=== PATIENT | female | born 1955 | race Caucasian/White ===

== ENCOUNTER 2017-12-21 19:40 | Inpatient (IN) | payer OTHER ==
[~2017-12-21] VITALS: Ht 162.6 cm; Wt 83.2 kg
--- NOTE | ~2017-12-21 | DS ---
PATIENT:RICHA BROWN :55 MEDICAL RECORD: [id number] DISCHARGE SUMMARY ADMISSION DATE: 12/21/17 DISCHARGE DATE: 12/25/17 DATE OF ADMISSION: 12/21/2017 DATE OF DISCHARGE: 12/25/2017 ADMISSION DIAGNOSIS: Acute sigmoid diverticulitis. DISCHARGE DIAGNOSES: Acute sigmoid diverticulitis and electrolyte abnormalities. HOSPITAL COURSE: The patient was admitted to the Emergency Room with left lower quadrant pain, chills, symptomatic for several days. Does not have a primary care physician. Was admitted through [facility]. CT showed sigmoid diverticulitis. The patient was started on IV Levaquin and IV metronidazole, initially n.p.o., gradually improved. Electrolytes monitored. Had deficiencies of potassium, magnesium, and phosphorus. These were corrected. The patient is tolerating clear liquids, soft diet. Anxious to go home. Discharged on oral medication. Has been afebrile on oral medications for the past 24 hours. Will follow up in the clinic in 2 weeks. We will advance diet as tolerated. DISCHARGE MEDICATIONS: Per [facility]. TRANSINT:[id number] Voice Confirmation ID: [id number] DOCUMENT ID: [id number] TIM HERNANDEZ DO at 1224 CC: [id number] DICTATION DATE: 12/25/17 1112 EIGHT ARM OPERATOR: 12/25/17 1212 DIS IN 12/25/17 [id number] [place] [address]
--- NOTE | ~2017-12-21 | MORECARE ---
CASE MANAGEMENT DISCHARGE SUMMARY PATIENT: RICHA BROWN UNIT: [id number] ADM DATE: 12/21/17 AGE: 62 : 55 SEX: F ROOM/BED: D.2204 AUTHOR: CASE, [employer] INSULATOR PHYSICIAN: REFERRING PHYSICIAN: TIM HERNANDEZ DO DATE OF SERVICE: 12/21/17 Discharge Plan Patient Name: [facility]ICHA BROWN [facility] [facility] 1955 Planned Disposition: Home or Self Care Anticipated Discharge Date: Discharge Date: Expected LOS: Initial Reviewer: [id number] Initial Review Date: 12/22/2017 Generated: 12/22/17 3:09 pm Patient Name: RICHA BROWN Page [id number] All edits/amendments must be made on the electronic document DICTATION DATE: 12/22/171407 [employer] BPM DEVELOPER: 12/22/171407 RPT#: [id number] DC DATE: STATUS: ADM IN [facility] [address] [place] [address] END OF REPORT
--- NOTE | ~2017-12-21 | HP ---
PATIENT: RICHA BROWN MEDICAL RECORD: [id number] ACCOUNT: [id number] LOCATION:[facility] [address] : 55 ADMISSION DATE: 12/21/17 HISTORY AND PHYSICAL EXAMINATION HISTORY OF PRESENT ILLNESS: A 62-year-old female presented to the Emergency Room late last night with mild left lower quadrant abdominal pain, had prior complaint of constipation. Has no primary care physician. ALLERGIES: No known drug allergies. MEDICATIONS: Takes [id number] Nexium, Claritin, fish oil, and probiotic at home. PAST MEDICAL HISTORY: Remote history of prior diverticulitis. Very remote history of colonoscopy, does not remember results. Rare to seek medical care. REVIEW OF SYSTEMS: GENERAL: No acute change in weight or appetite. HEENT: No cephalgia, visual changes, tinnitus, epistaxis, or dysphagia. CARDIOVASCULAR: Denies chest pain. Denies palpitations. PULMONARY: Denies hemoptysis. Denies night sweats. GASTROINTESTINAL: Denies hematemesis, hematochezia, or melena. Does admit left lower quadrant abdominal pain. GENITOURINARY: Denies dysuria. MUSCULOSKELETAL: No acute changes. ENDOCRINE: Denies polyuria, polydipsia, or polyphagia. PHYSICAL EXAMINATION: VITAL SIGNS: Temperature 99.7, blood pressure is 160/99, heart rate 95, respirations 20, O2 sat 98% on room air. GENERAL: Alert, oriented, in mild distress secondary to above. HEENT: Head: Normocephalic, atraumatic. Eyes: Pupils equally round and reactive to light and accommodation. Extraocular muscles intact. Conjunctivae not injected. Ears: Canals patent. TMs are intact. Nose: Nares patent without drainage. Throat: No erythema. No exudates. NECK: Supple. No lymphadenopathy. No JVD. GASTROINTESTINAL/ABDOMEN: Left lower quadrant tenderness. No palpable mass. No rebound. No guarding. EXTREMITIES: Present times 4. NEUROLOGIC: Intact. LABORATORY DATA: CBC: White count 14.7, hemoglobin 14.1, hematocrit 42.3, platelets 231. Chemistry shows sodium of 140, potassium 3.7, chloride 103, bicarbonate 26, BUN 14, creatinine 0.8. T-bili 0.48, AST 21, ALT 35, alkaline phosphatase 65. CBC: White count 16,300, hemoglobin 15.3, hematocrit 45.4, platelets 259. Lipase 185. Urinalysis: Straw-colored, clear, normal UA. CT of the abdomen: Thickening, stranding around the sigmoid colon consistent with sigmoid diverticulitis. ASSESSMENT AND PLAN: Acute sigmoid diverticulitis. The patient is admitted. IV fluids. Empiric antibiotics. We will start clear liquid diet as tolerated. Supportive care. TRANSINT:[id number] Voice Confirmation ID: [id number] DOCUMENT ID: [id number] HISTORY AND PHYSICAL [id number] RICHA BROWN ROBERT DO at 0758 CC: [id number] DICTATION DATE: 12/22/17816 [employer] PER[employer]MAN[employer] ENGINEER: 12/22/17 0848 ADM IN [place] [id number] [place] [address]
[~2017-12-21 19:40] MED LIST: HYDROCODONE-APA1 TAB PO
[2017-12-21] MEDS ORDERED: PROBIOTIC BLEN1 EACH (19:47)
[2017-12-21] MEDS ORDERED: CLARITIN 10 MG10 MG PO (19:47)
[2017-12-21] MEDS ORDERED: FISH OIL 1,0001 CA1 PO (19:47)
[2017-12-21] MEDS ORDERED: NEXIUM20 MG PO (19:47)
[2017-12-21 20:49] LABS: APPEARANCE CLEAR (CLEAR); BILIRUBIN NEGATIVE (NEGATIVE); COLOR STRAW (YELLOW); GLUCOSE NEGATIVE (NEGATIVE); KETONE NEGATIVE (NEGATIVE); NITRITE NEGATIVE (NEGATIVE); PROTEIN NEGATIVE (NEGATIVE); SPECIFIC GRAVITY 1.005 (1.005-1.020); UROBILINOGEN NORMAL (NORMAL)
[2017-12-21 21:05] LABS: BASOPHILS 0.1 % (0-2); EOSINOPHILS 0.1 % (0-7); HEMATOCRIT 45.4 % (36.0-48.0); HEMOGLOBIN 15.3 g/dL (12-16); IMMATURE GRANULOCYTES 0.2 % (0-5); MCH 29.4 pg (26.0-34.0); MCHC 33.7 g/dL (31.0-37.0); MCV 87.3 fL (80.0-100.0); MEAN PLATELET VOLUME 9.8 fL (7.4-10.4); MONOCYTES 4.2 % (2-11); NEUTROPHILS 90.4 % (40-80); PLATELET COUNT 259 10x3/uL (130-400); RDW 14.1 % (11.5-14.5); WBC 16.3 10x3/uL (4.8-10.8)
[2017-12-21 21:27] LABS: ALBUMIN 3.8 g/dL (3.4-5.0); ALKALINE PHOSPHATASE 80 U/L (46-116); ALT (SGPT) 44 U/L (10-68); CALC OSMOLALITY 271 mosm/kg (275-300); CARBON DIOXIDE 28.3 mmol/L (21.0-32.0); CHLORIDE - SERUM 102 mmol/L (98-107); CREATININE - SERUM 0.9 mg/dL (0.6-1.3); GLUCOSE 123 mg/dL (74-106); POTASSIUM - SERUM 3.9 mmol/L (3.5-5.1); PROTEIN - SERUM 7.3 g/dL (6.4-8.2); SODIUM 135 mmol/L (136-145); UREA NITROGEN 15 mg/dL (7-18); eGFR NON AFRICAN AMERICAN 67 mL/min (90-120)
[2017-12-21 21:33] LABS: AMYLASE - SERUM 67 U/L (25-115); LIPASE 185 U/L (73-393)
[2017-12-21 21:34] LABS: TROPONIN-I < 0.017 ng/mL (0.000-0.060)
[2017-12-21 23:48] VITALS: BP 143/83
[2017-12-22] VITALS (8 sets, daily range): BP systolic 133–158; BP diastolic 71–83; Ht 162.6 cm; Wt 83.2 kg
[2017-12-22 05:47] LABS: BASOPHILS 0.1 % (0-2); EOSINOPHILS 0.1 % (0-7); HEMATOCRIT 42.3 % (36.0-48.0); HEMOGLOBIN 14.1 g/dL (12-16); IMMATURE GRANULOCYTES 0.2 % (0-5); LYMPHOCYTES 7.4 % (15-50); MCH 29.1 pg (26.0-34.0); MCHC 33.3 g/dL (31.0-37.0); MCV 87.4 fL (80.0-100.0); MONOCYTES 6.5 % (2-11); NEUTROPHILS 85.7 % (40-80); PLATELET COUNT 231 10x3/uL (130-400); RBC 4.84 10x6/uL (4.00-5.40); RDW 14.4 % (11.5-14.5); WBC 14.7 10x3/uL (4.8-10.8)
[2017-12-22 06:35] LABS: ALBUMIN 3.3 g/dL (3.4-5.0); ALKALINE PHOSPHATASE 65 U/L (46-116); ALT (SGPT) 35 U/L (10-68); BILIRUBIN - TOTAL 0.48 mg/dL (0.2-1.3); CALC OSMOLALITY 279 mosm/kg (275-300); CALCIUM 8.6 mg/dL (8.5-10.1); CHLORIDE - SERUM 103 mmol/L (98-107); CREATININE - SERUM 0.8 mg/dL (0.6-1.3); GLUCOSE 103 mg/dL (74-106); POTASSIUM - SERUM 3.7 mmol/L (3.5-5.1); PROTEIN - SERUM 6.3 g/dL (6.4-8.2); SODIUM 140 mmol/L (136-145); UREA NITROGEN 14 mg/dL (7-18); eGFR NON AFRICAN AMERICAN 77 mL/min (90-120)
[2017-12-23 00:22] VITALS: BP 157/84
[2017-12-23 04:30] LABS: BASOPHILS 0.1 % (0-2); EOSINOPHILS 0.1 % (0-7); HEMATOCRIT 37.4 % (36.0-48.0); HEMOGLOBIN 12.4 g/dL (12-16); IMMATURE GRANULOCYTES 0.2 % (0-5); MCH 29.3 pg (26.0-34.0); MCHC 33.2 g/dL (31.0-37.0); MCV 88.4 fL (80.0-100.0); NEUTROPHILS 86.6 % (40-80); PLATELET COUNT 218 10x3/uL (130-400); RBC 4.23 10x6/uL (4.00-5.40); RDW 14.8 % (11.5-14.5); WBC 12.9 10x3/uL (4.8-10.8)
[2017-12-23 04:53] LABS: ALBUMIN 2.8 g/dL (3.4-5.0); ANION GAP 10.9 mmol/L (8-16); BILIRUBIN - TOTAL 0.56 mg/dL (0.2-1.3); CALCIUM 8.5 mg/dL (8.5-10.1); CARBON DIOXIDE 27.5 mmol/L (21.0-32.0); CREATININE - SERUM 0.9 mg/dL (0.6-1.3); MAGNESIUM - SERUM 1.8 mg/dL (1.8-2.4); POTASSIUM - SERUM 3.4 mmol/L (3.5-5.1)
[2017-12-23 06:13] VITALS: BP 122/65
[2017-12-23 08:34] VITALS: BP 135/80
[2017-12-23 12:40] VITALS: BP 137/77
[2017-12-23 16:51] VITALS: BP 141/81
[2017-12-23 20:52] VITALS: BP 140/78
[2017-12-24 00:30] VITALS: BP 144/71
[2017-12-24 04:44] LABS: BASOPHILS 0.2 % (0-2); EOSINOPHILS 1.6 % (0-7); HEMATOCRIT 36.4 % (36.0-48.0); IMMATURE GRANULOCYTES 0.1 % (0-5); LYMPHOCYTES 12.1 % (15-50); MCV 87.9 fL (80.0-100.0); MEAN PLATELET VOLUME 9.8 fL (7.4-10.4); MONOCYTES 7.6 % (2-11); NEUTROPHILS 78.4 % (40-80); PLATELET COUNT 200 10x3/uL (130-400); RBC 4.14 10x6/uL (4.00-5.40); RDW 14.4 % (11.5-14.5)
[2017-12-24 04:47] LABS: WBC 8.2 10x3/uL (4.8-10.8)
[2017-12-24 05:04] LABS: ALBUMIN 2.5 g/dL (3.4-5.0); ALKALINE PHOSPHATASE 55 U/L (46-116); ALT (SGPT) 62 U/L (10-68); BILIRUBIN - TOTAL 0.36 mg/dL (0.2-1.3); CALC OSMOLALITY 283 mosm/kg (275-300); CALCIUM 8.1 mg/dL (8.5-10.1); CARBON DIOXIDE 26.8 mmol/L (21.0-32.0); CHLORIDE - SERUM 109 mmol/L (98-107); CREATININE - SERUM 0.8 mg/dL (0.6-1.3); GLUCOSE 89 mg/dL (74-106); MAGNESIUM - SERUM 1.7 mg/dL (1.8-2.4); PHOSPHOROUS 2.3 mg/dL (2.5-4.9); PROTEIN - SERUM 5.9 g/dL (6.4-8.2); SODIUM 144 mmol/L (136-145); UREA NITROGEN 6 mg/dL (7-18); eGFR NON AFRICAN AMERICAN 77 mL/min (90-120)
[2017-12-24 06:17] VITALS: BP 141/72
[2017-12-24 08:42] VITALS: BP 141/73
[2017-12-24 12:53] VITALS: BP 140/76
[2017-12-24 15:45] VITALS: BP 149/89
[2017-12-24 21:47] VITALS: BP 138/64
[2017-12-25 02:55] VITALS: BP 135/75
[2017-12-25 05:04] LABS: BASOPHILS 0.3 % (0-2); EOSINOPHILS 4.5 % (0-7); HEMOGLOBIN 12.2 g/dL (12-16); IMMATURE GRANULOCYTES 0.2 % (0-5); LYMPHOCYTES 15.1 % (15-50); MCH 28.7 pg (26.0-34.0); MCV 87.1 fL (80.0-100.0); MEAN PLATELET VOLUME 9.9 fL (7.4-10.4); MONOCYTES 7.9 % (2-11); PLATELET COUNT 197 10x3/uL (130-400); RBC 4.25 10x6/uL (4.00-5.40); RDW 14.3 % (11.5-14.5)
[2017-12-25 05:10] LABS: WBC 5.8 10x3/uL (4.8-10.8)
[2017-12-25 05:32] LABS: ALBUMIN 2.4 g/dL (3.4-5.0); ALKALINE PHOSPHATASE 57 U/L (46-116); ALT (SGPT) 48 U/L (10-68); BILIRUBIN - TOTAL 0.33 mg/dL (0.2-1.3); CALC OSMOLALITY 280 mosm/kg (275-300); CALCIUM 8.1 mg/dL (8.5-10.1); CARBON DIOXIDE 25.8 mmol/L (21.0-32.0); CHLORIDE - SERUM 110 mmol/L (98-107); CREATININE - SERUM 0.7 mg/dL (0.6-1.3); GLUCOSE 95 mg/dL (74-106); MAGNESIUM - SERUM 2.1 mg/dL (1.8-2.4); POTASSIUM - SERUM 3.3 mmol/L (3.5-5.1); PROTEIN - SERUM 5.5 g/dL (6.4-8.2); SODIUM 142 mmol/L (136-145); UREA NITROGEN 6 mg/dL (7-18); eGFR NON AFRICAN AMERICAN 90 mL/min (90-120)
[2017-12-25 05:33] LABS: PHOSPHOROUS 3.5 mg/dL (2.5-4.9)
[2017-12-25 06:05] VITALS: BP 142/75
[2017-12-25 09:25] VITALS: BP 135/78
[2017-12-25] MEDS ORDERED: FLAGYL500 MG PO (11:07)
[2017-12-25] MEDS ORDERED: LEVAQUIN750 MG PO (11:07)
[2017-12-25] MEDS ORDERED: K-TAB10 MEQ PO (11:08)
== END 2017-12-25 12:09 | disposition home or self-care (01) | DRG 392 ==
LOC: D.ER 19:40 → D.EDHOLD 23:54 → D.MS 23:54
PROVIDERS: Family Medicine
DX: K57.32 Diverticulitis of large intestine without perforation or abscess without bleeding (principal); N39.0 Urinary tract infection, site not specified; K21.9 Gastro-esophageal reflux disease without esophagitis; E87.6 Hypokalemia; E83.42 Hypomagnesemia; E83.39 Other disorders of phosphorus metabolism

== ENCOUNTER 2018-08-03 19:00 | Outpatient (CLI) | payer OTHER ==
[2017-12-22 15:16] VITALS: BMI 31.5
[~2018-08-03 19:00] MED LIST changes: +CLARITIN 10 MG10 MG PO; +FISH OIL 1,0001 CA1 PO; +FLAGYL500 MG PO; +K-TAB10 MEQ PO; +LEVAQUIN750 MG PO; +NEXIUM20 MG PO; +PROBIOTIC BLEN1 EACH
== END 2018-08-03 23:59 | disposition home or self-care (01) ==
LOC: D.MAMMO 19:00
PROVIDERS: ATTEND Family Medicine
DX: Z12.31 Encounter for screening mammogram for malignant neoplasm of breast (principal)

== ENCOUNTER → 2019-12-07 09:26 | Outpatient (CLI) | payer OTHER ==
[2017-12-22 15:16] VITALS: BMI 31.5
== END | disposition home or self-care (01) ==
LOC: D.US 09:26
PROVIDERS: ATTEND Family Medicine
DX: R74.8 Abnormal levels of other serum enzymes (principal)